=== PATIENT | male | born 1945 | race Caucasian/White ===

== ENCOUNTER 2022-10-01 14:28 | Outpatient (CLI) | payer MEDICARE, BC, SELFPAY ==
[2022-10-01 14:12] LABS: Albumin* 4.6 g/dL (3.3-5.0); Chloride* 104 mmol/L (96-114)
[2022-10-01 14:13] LABS: Sodium* 138 mmol/L (135-149)
[2022-10-01 14:15] LABS: Alanine Aminotransferase* 28 U/L (4-50); Alkaline Phosphatase* 73 U/L (40-150); Aspartate Amino Transferase* 32 U/L (12-35); Bilirubin Total* 0.6 mg/dL (0.1-1.5); Blood Urea Nitrogen* 18 mg/dL (7-30); Calcium* 9.5 mg/dL (8.4-10.6); Carbon Dioxide* 28 mmol/L (20-32); Cholesterol* 211 mg/dL (90-199); Creatinine* 0.9 mg/dL (0.5-1.5); Estimated Glomerular Filt Rate 89 ml/min; Glucose* 99 mg/dL (60-115); Total Protein* 7.2 g/dL (6.0-8.3); Triglycerides* 122 mg/dL (40-149)
[2022-10-01 14:16] LABS: HDL Cholesterol* 60 mg/dL (>=40); LDL Cholesterol Calculated 127 mg/dL (<100)
[2022-10-01 14:37] LABS: PSA Screen* 0.67 ng/mL (0.10-4.00)
== END 2022-10-01 14:29 | disposition home or self-care (01) ==
PROVIDERS: PCP Family Medicine; Visit Provider Family Medicine
DX: Z00.00 Encounter for general adult medical examination without abnormal findings (principal); E78.00 Pure hypercholesterolemia, unspecified; N40.0 Benign prostatic hyperplasia without lower urinary tract symptoms
CPT/HCPCS: 80053; 80061; 84153

== ENCOUNTER 2022-12-03 15:15 | Outpatient (RCR) | payer MEDICARE, BC, SELFPAY ==
--- NOTE | 2022-10-29 14:35 | PT.OPE ---
PT [facility] Outpatient Eval PT [facility] Outpatient Eval Start: 10/28/22 16:06 Freq: Status: Active Protocol: Document 10/29/22 08:02 LSL (Rec: 10/29/22 08:28 LSL [id number]) E-signed By Sissy Salvador PT Physical Therapy Outpatient Evaluation Insurance Information Recert Due Date 12/19/22 Insurance Name Medicare B Insurance Information/Comments BCBS supplement Medical Diagnosis R medial epicondylitis, R shoulder pain Treating Diagnosis pain, weakness, impaired ROM Referring MD Osborn Subjective Subjective Pt. complains of shoulder and elbow pain for last 5 years and just isn't getting any better. Pt. was playing [employer] ball last summer and noticed some elbow pain and the left elbow began intermittently having pain a couple weeks ago. Pt. is R hand dominant. Pt. had PT about 5 years ago and it helped nominally. I use a computer mouse a lot and play [employer]is [employer], so my arm is up for 30-45' at a time. I play daily. Pt reports the pain is shoulder is intermittent with activity with a little bit of burning and more aching. Denies radicular pain. Changing position helps. I work with a personal fitness trainer at [employer] and he has given me some exercises to include wrist flexion and extension stretches and 90 degree ER and haven't noticed any improvement. I wake with the pain and then go 4 hours later and there is nothing there. When I do exercises it feels weaker. Haven't been to PT in 3 years. Date of Last Physician Visit 10/20/22 Current Work Status Retired Preferred Name Jordan Objective Range of Motion AROM - Cervical - LLF 40% with tightness B, all others WFL Shoulder L R flexion 135 118 abduction 148 118 IR T9 L4 ER 86 96 PROM Flexion about 160 tightness superiorly, abduction 140 tightness posteriorly Cervical - B equal lateral flexion Wrist - flexion WNL, extension WFL Strength Shoulder - L hor abd 4/5, supraspinatus 4-/5, R hor abd 5-/5, supraspinatus 3+/5, ER 3 +/5 JOCKEY VALET - L 70/65/64 pounds of pressure R 85/76/76 pounds of pressure Palpation tender rhomboid, R wrist extensor muscle bundle both tender Posture B protracted shoulders, atrophy R RC visible Assessment Assessment/Impression Pt. is a 76 y/o male with complaints of R shoulder and elbow pain. There was visible atrophy in the supraspinatus and infraspinatus leading to RC weakness and imbalance contributing to his pain. 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 He will benefit from PT to establish a good HEP and work on improving the strength in his RC and scapular stabilizers with manual therapy for joint and muscles. Primary Functional Limitations reaching, lifting Plan of Care Rehabilitation Potential Excellent Physical Therapy Goals SHORT TERM GOALS: (3 weeks) 1. Pt. to have improved shoulder flexion by 20 degrees . 2. Pt. to have 1/2 grade increase in muscle strength. INDUSTRIAL ECONOMIST GOALS: (4+ weeks) 1. Pt. 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 2. Pt. able to play trumpet with pain 2/10 or less. Coordination/Communication With Referral Source Treatment Plan/Direct Interventions Joint Mobilization,Manual Therapy,Self-Care/Home Management,Therapeutic Activities Frequency/Duration 1x/week 6 weeks Patient Will Be Discharged From Therapy Completion of LTG(s),Skills Plateau,Independent w/HEP, Independently Progressing Evaluation Billing Untimed Code Treatment Minutes 25 Complexity Low Certification Information Initial Certification Date 10/29/22 Ending Certification Date 12/26/22 Provider Signature Shows Agreement With POC & Medical Necessity Physician Signature & Date Requested Please Sign/Date Here Physician Comment/Change : Physician NPI Number #
== END 2023-01-13 15:36 | disposition home or self-care (01) ==
PROVIDERS: PCP Family Medicine; Visit Provider Family Medicine
DX: M25.511 Pain in right shoulder (principal); M77.01 Medial epicondylitis, right elbow; Z51.89 Encounter for other specified aftercare
CPT/HCPCS: 97032; 97110; 97140; 97161

== ENCOUNTER 2023-01-22 08:17 | Outpatient (CLI) | payer MEDICARE, BC, SELFPAY | END 2023-01-22 08:18 | disposition home or self-care (01) | LOC: NFLDREF 22:01 | PROVIDERS: PCP Family Medicine; Referring Provider Family Medicine; Visit Provider Family Medicine | DX: E78.00 Pure hypercholesterolemia, unspecified (principal) | CPT/HCPCS: 80061; 84460 ==

== ENCOUNTER 2024-02-02 12:26 | Outpatient (CLI) | payer MEDICARE, BC, SELFPAY | END 2024-02-02 12:27 | disposition home or self-care (01) | PROVIDERS: PCP Family Medicine; Visit Provider Family Medicine | DX: E78.00 Pure hypercholesterolemia, unspecified (principal); N40.0 Benign prostatic hyperplasia without lower urinary tract symptoms; Z13.228 Encounter for screening for other metabolic disorders; Z12.5 Encounter for screening for malignant neoplasm of prostate | CPT/HCPCS: 80053; 80061; G0103 ==

== ENCOUNTER 2024-03-31 11:15 | Outpatient (RCR) | payer MEDICARE, BC, SELFPAY ==
--- NOTE | 2024-02-05 08:57 | PT.OPE ---
PT [facility] Outpatient Eval PT [facility] Out[facility] Eval Start: 02/05/24 07:21 Freq: Status: Active Protocol: Document 02/05/24 08:55 ROSEANNT (Rec: 02/05/24 08:57 CJT [id number]) E-signed By Praful Alonso PT Physical Therapy Outpatient Evaluation Insurance Information Recert Due Date 05/05/24 Insurance Name Medicare B Medical Diagnosis M54.2 - Cervicalgia M25.511 - R shoulder pain Treating Diagnosis M54.2 - Cervicalgia M25.511 - R shoulder pain Referring MD Osborn Subjective Subjective Pt presents with complaints of R shoulder pain and neck pain . Pain is worse in the shoulder in the AM and improves with motion. Points to top of his shoulder as the source of his pain. Also notes pain in R scapular muscles - says they are tight. In regard to his neck, he points to his L UT and notes the muscles feel very tight. Enjoys playing pickleball. Doesn't seem to have pain while playing. Pt describes his exercise routine including stretching his chest on the floor, cervical retraction stretching, and shoulder exercises with 8lb dumbbells. Pt leaves for trip to [place] at the end of February. Pain Comments 02/11 for shoulder and L neck Date of Last Physician Visit 02/02/24 Current Work Status Retired Occupation Former House Rn Preferred Name Jordan Del Valle Therapy Limitations/Systems Review Not Limited Objective Other/Pertinent Objective Cervical ROM Extension - 44 Flexion - 44 R/L Side Bend - 20/20 R/L Rotation - 57/64 R Shoulder ROM Flexion/Abduction/IR/ER - 140/ 140/L2/67 L Shoulder ROM Flexion/Abduction/IR/ER - 140/ 130/T12/76 Cervical Strength Extension - 5/5 MMT Flexion - 4/5 MMT R/L Side Bend - 5/5 MMT R/L Rotation - 5/5 MMT R Shoulder Strength Flexion - 4/5 MMT Abduction - 4/5 MMT IR (neutral) - 5/5 MMT IR (90) - 5/5 MMT ER (neutral) - 4/5 MMT ER (90) - 4-/5 MMT Empty Can - 4-/5 MMT L Shoulder Strength Flexion - 4+/5 MMT Abduction - 4+/5 MMT IR (neutral) - 5/5 MMT IR (90) - /5 MMT ER (neutral) - 4+/5 MMT ER (90) - 4/5 MMT Empty Can - 4/5 MMT R Scapular Strength Rhomboid - 4+/5 MMT Mid Trap - 4+/5 MMT Lower Trap - 4+/5 MMT L Scapular Strength Rhomboid - 4+/5 MMT Mid Trap - 4+/5 MMT Lower Trap - 4+/5 MMT Palpation: pt reports tenderness/pain with palpation to L scalenes, B pec major Posture: slight forward rounding of shoulders and forward head position Spurling's Compression: negative Distraction: feels good Mcgill's: negative Crossover: pain along posterolateral shoulder Celis-Ede: negative Whipple: negative for pain, positive for weakness Neers: negative Speeds: negative Assessment Assessment/Impression Jordan is a very pleasant 78 year old male who presents to our clinic for evaluation and treatment of R shoulder pain and neck pain. Pt presents with ROM and strength deficits in both cervical spine and R shoulder (see objective). Pts neck pain appears to be due to muscle tightness in his L scalenes. Pt shoulder pain appears to be due to osteoarthritis as he notes that pain is worse in the AM and resolves with motion. He does have significant weakness in his R>L RTC muscles and will benefit from strengthening. No signs of impingement this date. Scapular muscle strength actually looks quite good for pts age, but could use some strengthening as well. The nature of the pts condition was explained and all questions were answered to the pts satisfaction. Skilled PT services are medically necessary to address deficits and return patient to highest level of function. Recommend physical therapy sessions 1/ week for 4-8 weeks. Pt agrees with this plan. Printout of HEP was given for I completion and pt gives verbal understanding of each exercise . Primary Functional Limitations Rolling in bed, lifting, reaching Plan of Care Rehabilitation Potential Good Physical Therapy Goals STG - To be completed in 2-3 weeks: 1. Pt will demonstrate improved shoulder flexion and abduction by 10+ degrees so that they may reach for cans of soup on top shelf in pantry . 2. Pt will report reduction in shoulder pain by factor of 2 so that they may sleep without waking due to pain while shifting position in the night . 3. Pt will demonstrate improved cervical strength to 5/5 MMT in all directions to provide greater support to cervical spine and head. 4. Pt will report reduction in neck pain by factor of 2 so that they may roll over in bed without waking due to pain. LTG - To be completed in 4-8 weeks: 1. Pt to be I with HEP so that they may I manage progression of symptoms. 2. Pt will report ability to lay on R shoulder in bed without increase in pain so that they may sleep in preferred position to achieve better night's sleep. 3. Pt will demo at least 4+/5 MMT for all shoulder motions B to provide greater stability to GH joints to reduce pain. Treatment Plan/Direct Interventions Heat,Joint Mobilization,Manual Therapy,Self-Care/Home Management,Therapeutic Exercises Frequency/Duration 1/week for 4-8 weeks Patient Will Be Discharged From Therapy Completion of LTG(s),Skills Plateau,Independent w/HEP, Independently Progressing Evaluation Billing Untimed Code Treatment Minutes 45 PT Eval No Charge No Complexity Low Certification Information Initial Certification Date 02/05/24 Ending Certification Date 05/05/24 Provider Signature Shows Agreement With POC & Medical Necessity Physician Signature & Date Requested Please Sign/Date Here Physician Comment/Change : Physician NPI Number #
== END 2024-06-27 08:53 | disposition home or self-care (01) ==
PROVIDERS: PCP Family Medicine; Visit Provider Family Medicine
DX: M25.511 Pain in right shoulder (principal); M54.2 Cervicalgia; Z51.89 Encounter for other specified aftercare
CPT/HCPCS: 76706; 93306; 97110; 97140; 97161

== ENCOUNTER 2024-04-21 08:51 | Outpatient (CLI) | payer MEDICARE, BC, SELFPAY ==
--- NOTE | 2024-04-21 09:15 | MR_ITS ---
[facility] [address] [facility] [address] Phone:?[phone] Fax:?[phone] Referring Physician Information: Alexi Jacobo M.D. [id number] [address] Phone:?[phone] Fax:?[phone] Patient:Cesia Qureshi D.O.B:?1945 Sex:?Male Phone:?[phone] [facility] MRN:?[id number] Exam Date:?04/21/2024 EXAM: MRI of the LEFT ELBOW, without contrast CLINICAL INFORMATION: Male, 78 years old, with left elbow pain. INDICATION: Evaluate for biceps tendon tear. PRIOR SURGERY: None reported. PLAIN FILMS: None available. COMPARISONS: No prior MRIs available. TECHNICAL INFORMATION: Using a 1.5T MR scanner and a localizing surface coil: coronals: PD, T1, T2, STIR sagittals: PD, T2 axials: PD, T2 SEDATION: None CONTRAST: None FINDINGS: Elbow joint: Effusion: Physiologic. Ganglion cyst: None. Radiohumeral plica: No pathologic thickening or enlargement. Osteochondral surfaces: No osteochondral abnormality. Loose bodies: No demonstrable loose bodies. Bursae: Marked bicipitoradial bursitis. No olecranon bursitis. Bones: Humerus: No fracture, osteochondritis dissecans or marrow edema/pathology. Radius: No fracture or marrow edema. Ulna: No fracture or marrow edema. Myotendinous structures: Biceps: Marked tendinopathy and high-grade tearing of the distal biceps tendon with only a a few poor quality tendon fibers remaining partially intact (axial PD series 9 images 110). The torn tendon fibers are retracted approximately 2.5 cm. Triceps: Intact posterior tendinous and anterior muscular insertions and lateral aponeurotic component, without tendinopathy, strain or tear. Brachialis: No strain/tear. Supinator: No strain/tear. Forearm extensors: Mild common extensor tendinopathy, without tear. Forearm flexors: Mild-moderate common flexor tendinopathy with focal interstitial delamination at the tendon origin. Ligaments: Medial ulnar collateral: No sprain or disruption. Radial collateral proper: Normal. Lateral ulnar collateral: Normal. Annular: Normal. Nerves: Ulnar: Normal, without appreciable edema, thickening or mass. No anconeus epitrochlearis accessory muscle over the cubital tunnel. Median: Normal. Radial: Normal. IMPRESSION: 1. Marked biceps insertional tendinopathy with high-grade tearing and approximately 2.5 cm of retraction. A few poor quality tendon fibers appear to remain partially intact. 2. Marked bicipitoradial bursitis. 3. Mild-moderate common flexor and mild common extensor tendinopathy, without tear. 4. No ligamentous sprain/tear. 5. No fracture or osseous stress reaction. 6. No chondromalacia or osteochondral lesion/defect. BC Electronically signed on 04/21/2024 1:10:00 PM by Tate Forte M.D.
--- NOTE | 2024-04-21 10:00 | MR_ITS ---
[address] [address] Phone:?[phone] Fax:?[phone] Referring Physician Information: Alexi Jacobo M.D. [address] [address] Phone:?[phone] Fax:?[phone] Patient:Cesia Qureshi D.O.B:?1945 Sex:?Male Phone:?[phone] [facility] MRN:?[id number] Exam Date:?04/21/2024 EXAM: MRI of the RIGHT SHOULDER, without contrast CLINICAL INFORMATION: Male, 78 years old, with right shoulder pain. INDICATION: Evaluate for rotator cuff tear. PRIOR SURGERY: None reported. PLAIN FILMS: Radiographs dated 04/12/2024. COMPARISONS: No prior MRIs available. TECHNICAL INFORMATION: Using a 1.5T MR scanner and a localizing surface coil: coronal obliques: PD, T2, STIR sagittal obliques: T2, T2 axials: PD, T2 SEDATION: None CONTRAST: None FINDINGS: Bones: Proximal humerus: No fracture or marrow edema/pathology. No humeral Hill-Sachs or reverse Hill-Sachs lesion/impaction or contusion. Glenoid: No fracture or marrow edema/pathology. No osseous Bankart lesion. Rotator cuff and muscles/tendons: Supraspinatus: Full-thickness, essentially full-width tear of supraspinatus, tendon retraction to the mid humeral head. A slender portion of the posterior tendon fibers may remain partially intact. Grade 2 muscle atrophy. Infraspinatus: Mild-moderate infraspinatus tendinopathy with a 1.9 x 1.3 cm area of low-grade partial-thickness articular surface tearing (sagittal T2 series 8 image 5 and coronal T2 series 6 image 14). Teres minor: No tendinopathy, tear or atrophy. Subscapularis: Moderate-marked tendinopathy of the superior distal subscapularis with a 1.6 x 1.5 cm area of bsaabmmiwoch-siax-hsmdu partial-thickness tearing the lesser tuberosity attachment (sagittal T2 series 8 image 13 and axial PD series 3 image 20). No muscle atrophy. Deltoid: No strain or atrophy. Coracoacromial arch: Acromion morphology: The acromion has type II morphology with a broad-based mild subacromial enthesophyte/spur. No os acromiale. Acromiohumeral space: The acromiohumeral space is within normal limits. Coracohumeral space: The coracohumeral space is within normal limits. Acromioclavicular joint: Joint: Mild AC joint arthropathy, which encroaches upon the underlying supraspinatus. Ligaments: Coracoclavicular ligaments are intact. Bursae: Subacromial-subdeltoid: Mild-moderate subacromial subdeltoid bursitis. Subcoracoid: No convincing subcoracoid bursal thickening/bursitis. Biceps tendon: The long head of the biceps tendon is medially displaced at the lesser tuberosity. Additionally, there is moderate marked tendinopathy and ill- defined intermediate grade tearing of the intra-articular biceps long head tendon. Glenohumeral joint: Effusion/cyst: Small glenohumeral joint effusion. Articular cartilage: Humeral head: Mild thinning of the articular cartilage throughout the medial aspect of the humeral head with mild inferomedial marginal osteophytosis. Glenoid: Mild thinning the glenoid articular cartilage, with mild anterior posterior marginal osteophytosis. Loose bodies: No discrete intra-articular body within the joint. Labrum:?Intrasubstance degeneration and poorly defined fraying/tearing is present circumferentially throughout the labrum, with a slender posterior inferior paralabral cyst (sagittal T2 series 8 image 14). Inferior glenohumeral ligament/axillary pouch:?Intact. The axillary pouch is normal in thickness and signal. No evidence of adhesive capsulitis or capsular injury. IMPRESSION: 1. Full-thickness, essentially full-width tear of supraspinatus, with tendon retraction to the mid humeral head and grade 2 muscle atrophy. 2. Findings keeping with a biceps dashawn injury: -Moderate marked subscapularis tendinopathy with broad-based sxvgalwtidbj-qoph-iybiv tearing of the lesser tuberosity attachment. -Medial displacement of the biceps long head tendon at the lesser tuberosity. -Moderate marked tendinopathy and ill-defined intermediate grade tearing of the intra-articular biceps long head tendon. 3. Mild osteoarthritis of the glenohumeral joint with a small joint effusion. 4. Broad-based mild subacromial enthesophyte/spur with mild/moderate subacromial subdeltoid bursitis. Additionally, there is mild AC joint arthropathy, which encroaches upon the underlying supraspinatus. 5. Circumferential degeneration and poorly defined fraying/tearing of the labrum with a slender posteroinferior paralabral cyst. 6. Mild-moderate pes planus tendinopathy with a 1.9 x 1.3 cm area of low-grade partial-thickness articular surface tearing. BC Electronically signed on 04/21/2024 1:05:00 PM by Tate Forte M.D.
== END 2024-04-21 08:52 | disposition home or self-care (01) ==
LOC: MRI 08:53
PROVIDERS: PCP Family Medicine; Visit Provider Orthopaedic Surgery
DX: M25.511 Pain in right shoulder (principal); S46.211A Strain of muscle, fascia and tendon of other parts of biceps, right arm, initial encounter; M71.521 Other bursitis, not elsewhere classified, right elbow; M75.101 Unspecified rotator cuff tear or rupture of right shoulder, not specified as traumatic
CPT/HCPCS: 73221

== ENCOUNTER 2024-05-20 07:30 | Day surgery (SDC) | payer MEDICARE, BC, SELFPAY ==
[2024-05-20] VITALS (7 sets, daily range): BP systolic 121–148; BP diastolic 75–98; PULSE 52–66; RESP 16; TEMP 36.2–36.4; O2SAT 95–99; BMI 26.0
[2024-05-20] MEDS: SODIUM CHLORIDE 0.9 % (FLUSH) 10 ML SYRINGE IVF (07:56)
[2024-05-20] MEDS: LACTATED RINGERS 1000 ML 1,000 ML 100 ML IV (07:57)
--- NOTE | 2024-05-20 08:14 | W.PM.H&PU ---
History & Physical Update History & Physical Update H&P Reviewed and patient assessed: No changes noted
--- NOTE | 2024-05-20 08:15 | PM.ORPRC ---
Procedure Note Date of procedure: 05/20/24 Procedure: PREOPERATIVE DIAGNOSIS: 1. Left distal biceps tendinosis and high-grade partial-thickness tear POSTOPERATIVE DIAGNOSIS: 1. Left distal biceps tendinosis and high-grade partial-thickness tear PROCEDURE: 1. Left distal biceps repair SURGEON: Merritt Jacobo MD. LABOR EMPLOYMENT ASSOCIATE: Aliyah Stapleton - An assistant professor of business was critical for this case to aid in patient positioning, tissue retraction, limb manipulation/positioning, and closure. ANESTHESIA: General with regional block IMPLANTS: Arthrex biceps button implant and a 7 mm x 10 mm peek tenodesis screw TOURNIQUET: Not utilized ESTIMATED BLOOD LOSS: 20 mL COMPLICATIONS: None evident INDICATIONS: The patient is a pleasant 78-year-old male with 1 year history left forearm pain. MRI was performed which revealed distal biceps tendinosis and high-grade partial-thickness tearing at the insertion. Recommendation was subsequently made for surgical repair to decrease pain and restore function of the biceps. Prior to surgery, the risks and benefits of procedure were discussed with patient, all questions were answered, and informed consent was obtained. DESCRIPTION OF PROCEDURE: Following a thorough discussion of risks, benefits, and alternatives consent was obtained and the operative site was marked. The patient was brought to the operating room and placed supine on the operating table. Induction of anesthesia was undertaken. IV Ancef was administered within 1 hr of incision preoperatively for prophylaxis. A tourniquet was placed on the patient's operative arm but was not utilized during the course of procedure. Left upper extremity was then prepped and draped in usual sterile fashion. A surgical time-out was performed confirming patient identity, surgical site, and surgical procedure. A longitudinal incision measuring 3-4 cm was made on the proximal volar forearm distal to the elbow flexion crease along the ulnar border of the brachioradialis. Blunt dissection was used to dissect through the subcutaneous tissues. Electrocautery was used to achieve hemostasis. Deep dissection was then used to expose the radial tuberosity and biceps tendon insertion site. The distal biceps tendon was identified at the insertion site and at the elbow flexion crease. The distal biceps tendon was noted to have significant tendinosis and had near complete tear from the insertion with only a few fibers remaining intact. The remaining fibers of the distal biceps were then released from the insertion site. The radial tuberosity was cleared of soft tissue. The distal biceps was then debrided back to healthy appearing tendon tissue. A #2 FiberLoop suture was then used to whipstitch the distal end of the biceps tendon. After whipstitch was complete, the tendon was able to pass through the 7 mm sizing block. Radial tuberosity was again exposed. A 3.2 mm bicortical tunnel was drilled in the radial tuberosity. Prior to drilling, fluoroscopic imaging was used to confirm drill placement in the radial tuberosity. An 8 mm unicortical tunnel was then drilled over the 3.2 mm guide pin. Guide pin and Reamer were removed. Wound was irrigated with normal saline and bone debris was removed. Biceps tendon was then passed deep to the superficial vascular structures. Sutures were then passed through the biceps button implant. The button fountain pen nibs inspector was used to pass the implant through both cortices of the radial tuberosity and button was flipped and seated on the cortical bone. Fluoroscopic imaging was used to confirm button deployment. Suture ends were then tensioned docking the tendon into the unicortical tunnel. Once the tendon was fully seated, 1 limb of suture was passed through the tendon, and a knot was tied. A 7 mm by 10 mm peek tenodesis screw was loaded over 1 suture limb, and the screw was inserted on the radial side of the bone tunnel. Once the tenodesis screw was fully seated, sutures were tied over the top of the screw, and remnant suture was cut and removed. Final fluoroscopic images were obtained confirming anatomic location of the biceps button. Wound was again irrigated with normal saline. Wound was then closed with 2-0 Vicryl and 2-0 Stratafix suture followed by Dermabond. Sterile dressings were applied followed by a well-padded long-arm posterior splint. Patient was awoken from anesthesia and transferred to the PACU in stable condition. POSTOPERATIVE PLAN: 1. No lifting, pushing, or pulling with the left upper extremity 2. Keep splint clean and dry, wear sling when ambulating as needed for comfort 3. Ice and elevation for pain and swelling 4. Tylenol and oxycodone as needed for pain control. 5. Follow-up in Orthopedic Clinic in 10-14 days for wound check and splint removal. 6. Will initiate formal physical therapy per the distal biceps tendon repair rehabilitation protocol in 2 weeks.
[2024-05-20] MEDS: MIDAZOLAM HCL 1 MG/ML inj IVP (10:45)
[2024-05-20] MEDS: fentaNYL 100 MCG/2 ML inj IVP (10:45)
--- NOTE | 2024-05-20 10:51 | SUR.PREOP ---
TIME?OUT:?1044 PT/RN/MDA?VERIFICATION?OF?SURGICAL?SITE Left Arm,?PROCEDURE Nerve Block,?AND?CONSENT OBTAINED?PRIOR?TO?INVASIVE?PROCEDURE.
[2024-05-20] MEDS: CEFAZOLIN 2 GM INJ IVP (11:25)
--- NOTE | 2024-05-20 11:38 | W.ANESCHARGE ---
Anesthesia Charges Start Date/Time Anesthesia Start Date: 05/20/24 Anesthesia Start Time: 11:18 Stop Date/Time Anesthesia Stop Date: 05/20/24 Anesthesia Stop Time: 13:53 Summary Extremes of Age - Over 70 or under 1: SOCIAL SERVICES ASSISTANT
--- NOTE | 2024-05-20 11:47 | CRLHL7_ITS ---
For Patients: As a result of the Century Cures Act, medical imaging exams and procedure reports are released immediately into your electronic medical record. You may view this report before your referring provider. If you have questions, please contact your health care provider. Indication: INTRA OP DISTAL BICEPS REPAIR EXAM WITH JUNG Technique: Two fluoroscopic images of the left elbow. Fluoroscopic time 6.7 seconds. IMPRESSION: Fluoroscopic guidance for distal biceps repair. Dictated by Mark Sotelo MD @ 05/20/2024 3:15:18 PM (Electronically Signed)
--- NOTE | 2024-05-20 13:26 | W.ANESCHARGE ---
Anesthesia Charges Start Date/Time Anesthesia Start Date: 05/20/24 Anesthesia Start Time: 11:18 Stop Date/Time Anesthesia Stop Date: 05/20/24 Anesthesia Stop Time: 13:53 Summary Extremes of Age - Over 70 or under 1: MDA
--- NOTE | 2024-05-20 13:27 | P.NB_ITS ---
Nerve Block Nerve Block Time Seen by Provider: 10:50 Date Seen: 05/20/24 Type of block requested by surgeon for post-operative analgesia: axillary Side: left Time out performed: Yes Verification of patient name: Yes Verification of date of : Yes Site marking: site marked Name of person performing procedure: Jean-Pierre Continuous monitoring Was continuous monitoring of O2 sat, B/P, threader operator, recorded every 15 minutes?: Yes Procedure Checklist: sterile prep, needles and gloves Ultrasound guided. Images saved: Yes Medications given in 5ml increments after negative aspiration: Ropivicaine %: 0.5 mL: 30 Needle gauge: 22 Patient tolerated procedure well: Yes Additional comments: Needle noted adjacent to nerve Block Charges Block Charge (with Pro Fee): Brachial Plexus Use of Ultrasound Machine for Block: Yes- US Guidance/pain block
== END 2024-05-20 14:45 | disposition home or self-care (01) ==
LOC: OR 07:31
PROVIDERS: PCP Family Medicine; Visit Provider Orthopaedic Surgery
PROC: (CPT 24341; principal; 2024-05-20 10:45)
DX: S46.212A Strain of muscle, fascia and tendon of other parts of biceps, left arm, initial encounter (principal); M75.22 Bicipital tendinitis, left shoulder; G89.18 Other acute postprocedural pain
CPT/HCPCS: 24342; 01716; 64415; 73070; 76000; 76942; 99100; A4580; C1713; J0690; J2250; J2704; J3010; J7120

== ENCOUNTER 2024-08-17 13:45 | Outpatient (RCR) | payer MEDICARE, BC, SELFPAY | END 2024-11-16 15:44 | disposition home or self-care (01) | PROVIDERS: PCP Family Medicine; Visit Provider Orthopaedic Surgery | DX: Z98.890 Other specified postprocedural states (principal); M25.622 Stiffness of left elbow, not elsewhere classified; Z51.89 Encounter for other specified aftercare | CPT/HCPCS: 97110; 97140; 97161 ==

== ENCOUNTER 2024-08-18 14:01 | Outpatient (CLI) | payer MEDICARE, BC, SELFPAY | END 2024-08-18 14:02 | disposition home or self-care (01) | LOC: LKVREF 14:01 | PROVIDERS: PCP Family Medicine; Visit Provider Family Medicine | DX: Z13.228 Encounter for screening for other metabolic disorders (principal) | CPT/HCPCS: 80048 ==

== ENCOUNTER 2024-10-28 06:14 | Day surgery (SDC) | payer MEDICARE, BC, SELFPAY ==
[2024-10-28] VITALS (14 sets, daily range): BP systolic 109–155; BP diastolic 57–82; PULSE 59–73; RESP 14–18; TEMP 36.2–36.4; O2SAT 91–97; BMI 25.9
[2024-10-28] MEDS: LACTATED RINGERS 500 ML 500 ML 100 ML IV ×3 (06:30→10:51)
[2024-10-28] MEDS: SODIUM CHLORIDE 0.9 % (FLUSH) 10 ML SYRINGE IVF (06:55)
--- NOTE | 2024-10-28 07:19 | P.ORPRC_ITS ---
Procedure Note Date of procedure: 10/28/24 Procedure: PREOPERATIVE DIAGNOSES: 1. Right shoulder rotator cuff tear. 2. Right shoulder subacromial impingement syndrome. POSTOPERATIVE DIAGNOSES: 1. Right shoulder rotator cuff tear - supraspinatus, anterior infraspinatus, and superior subscapularis 2. Right shoulder subacromial impingement syndrome. NAME OF OPERATION: 1. Right shoulder arthroscopic rotator cuff repair (upper subscapularis, supraspinatus, anterior infraspinatus). 2. Right shoulder arthroscopic biceps tenodesis 3. Right shoulder arthroscopic limited debridement 4. Right shoulder arthroscopic bursectomy, subacromial decompression/partial acromioplasty. SURGEON: Merritt Jacobo MD EXCHANGE ADMINISTRATOR: Dorothy Gerardo P.A.-C. An legal executive assistant was critical for this case to aide in patient positioning, suture manipulation, arm positioning, instrument positioning, and closure. ANESTHESIA: General plus preoperative supraclavicular block. IMPLANTS: Arthrex 4.75 mm knotless BioComposite Loop 'N' Tack tenodesis implant system; Arthrex knotless FiberTak SpeedBridge implant system (3 medial knotless fiber tacks and 2 lateral 5.5 mm SwiveLock anchors) COMPLICATIONS: None evident ESTIMATED BLOOD LOSS: 10 mL INDICATIONS: The patient is a pleasant, 78-year-old male who has experienced right shoulder pain and weakness that has been increasing in recent time. Physical exam and imaging were consistent with a rotator cuff tear. Given these findings and failure to improve with nonoperative management, recommendation was made for surgical intervention consisting of right shoulder arthroscopic rotator cuff repair, subacromial decompression, and probable biceps tenodesis. Prior to surgery risks and benefits were discussed with patient all questions were answered and informed consent was obtained. FINDINGS: Exam under anesthesia revealed stable shoulder with full range of motion. 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 Grade 1 chondromalacia of the humeral head. Near full-thickness tear of the superior subscapularis with medial subluxation of the long head of the biceps tendon. Full-thickness tear of the supraspinatus and anterior infraspinatus that measured approximately 3 cm anterior posterior direction and was retracted medially 2-3 cm. No loose bodies were identified within the pouch or subscapularis recess. PROCEDURE: Following a thorough discussion of risks, benefits, and alternatives, consent was obtained and the operative shoulder was marked. A supraclavicular nerve block was performed by anesthesia staff in preop holding. The patient was brought to the operating room and placed supine on the operating table. General anesthesia was administered, and patient was given IV Ancef preoperatively for prophylaxis. A surgical time-out was performed confirming patient identity, surgical site, and procedure. Patient was placed into the beach chair position. Head was placed in padded hogshead stock clerk in neutral alignment, and all bony prominences were well padded. The operative shoulder and upper extremity were prepped and draped in the appropriate sterile fashion using ChloraPrep. The anterior, posterior, lateral portal sites were injected with 0.25% bupivacaine with epinephrine. The glenohumeral joint was injected with 40 mL of normal saline using and 18g spinal needle from a posterior approach. Posterior portal was established. Anterior portal was established after localization with a spinal needle and a 7.0 mm cannula was placed here. Diagnostic arthroscopy was then performed with finding s as noted above. Attention was 1st directed to biceps tenodesis. This whipstitch suture Passer was used to pass the FiberLink around the long head of the biceps tendon creating a cinch stitch, and then the end of the suture was through the tendon proximal to the cinch stitch. Biceps tenotomy was then performed using arthroscopic scissor. The footprint of the upper subscapularis was debrided of soft tissue lightly decorticated with the bone-cutting shaver. The 4.75 mm BioComposite SwiveLock anchor incorporating the FiberLink suture was then placed in the humeral head just proximal to the bicipital groove. This was secured to position completing the biceps tenodesis. The proximal end of the biceps was debrided with a shaver and radiofrequency ablation. The knotless mechanism from the SwiveLock anchor was then used to pass a stitch through the upper subscapularis. After passing this stitch, it was tension completing the repair of the upper subscapularis. After repair, the upper subscapularis was noted be securely fixed to its footprint. Remnant sutures were cut and removed. The Cam was then moved to the subacromial space. A lateral portal was established after localization of spinal needle. A subacromial bursectomy was performed using combination of the arthroscopic shaver and radiofrequency ablator. Partial acromioplasty was performed using the bone-cutting shaver. A passport cannula was then placed into the lateral portal. The cuff was grasped and was noted to be easily mobilized well back to its footprint. The footprint was debrided of soft tissue and lightly decorticated the bone cutting shaver. Next three knotless FiberTak anchors were placed in the medial aspect of the footprint for the supraspinatus and anterior infraspinatus. These were placed through three small stab incisions off the lateral aspect of the acromion. After all 3 anchors were placed, FiberLink suture was then used to shuttle each set of sutures independently through the rotator cuff. Medial row repair was then performed using the knotless anchors. Lateral row repair was then performed using 25.5 mm knotless FiberTak anchors which were placed lateral to the anterior and posterior aspects of the supraspinatus footprint. Each anchor incorporated 1 FiberTape from the previously placed medial row anchors. Prior to placing each anchor, all sets of sutures were tensioned. [place] was then secured position remnant sutures were cut and removed. The knotless sutures from the anterior anchor were used to incorporate a dog ear which was present after the repair. After this was performed, remnant sutures were cut and removed. The medial row repair was tension 1 final time and these remnant sutures were also cut and removed. The shoulder was placed through range of motion and found to be stable. The rotator cuff was re-probed and found to be stable and securely reapproximated back to its footprint on the humeral head. Arthroscopic instruments and cannulas were removed. Excess fluid was drained and portal sites were closed with 3-0 nylon simple interrupted sutures. Sterile dressing was applied followed by the application of an abduction sling. The patient was awoken from anesthesia and transferred to the PACU in stable condition. PLAN: 1. Discharged to home day of surgery. 2. Ice for pain and swelling. 3. Tylenol and oxycodone as needed for pain control. 4. Abduction sling at all times except for ROM and showering. -Remove sling several times daily for pendulum exercises finger, wrist, and elbow range of motion. 5. Follow-up in orthopedic clinic in 10-14 days for wound check and suture removal. 6. Will initiate formal physical therapy 2 weeks postoperatively per the standard rotator cuff repair protocol.
--- NOTE | 2024-10-28 07:19 | W.PM.H&PU ---
History & Physical Update History & Physical Update H&P Reviewed and patient assessed: No changes noted
--- NOTE | 2024-10-28 07:25 | SUR.PREOP ---
TIME?OUT:?0727 PT/Erlinda Frank RN/Dr. Jean-Pierre MDA?VERIFICATION?OF?SURGICAL?SITE right shoulder,?PROCEDURE,?AND?CONSENT OBTAINED?PRIOR?TO?INVASIVE?PROCEDURE.
[2024-10-28] MEDS: fentaNYL 100 MCG/2 ML inj IVP (07:28)
[2024-10-28] MEDS: MIDAZOLAM HCL 1 MG/ML inj IVP (07:28)
--- NOTE | 2024-10-28 07:59 | P.ANES_ITS ---
Anesthesia Charges Start Date/Time Anesthesia Start Date: 10/28/24 Anesthesia Start Time: 07:34 Stop Date/Time Anesthesia Stop Date: 10/28/24 Anesthesia Stop Time: 10:34 Summary Extremes of Age - Over 70 or under 1: MDA Coding CPT Codes CPT Codes: ANESTH SURGERY OF SHOULDER - 02251 ([id number]) P2 - PATIENT W/MILD SYST DISEASE, QK - STAGE PRODUCER 2-4 CNCRNT ANES PROC, QX - CARDIAC CATHETERIZATION TECHNICIAN SVC W/ MD MED DIRECTION Additional Codes: Summary - Extremes of Age - Over 70 or under 1: MDA ([id number])
--- NOTE | 2024-10-28 07:59 | W.PM.NB ---
Nerve Block Nerve Block Time Seen by Provider: 07:29 Date Seen: 10/28/24 Type of block requested by surgeon for post-operative analgesia: supraclavicular Side: right Time out performed: Yes Verification of patient name: Yes Verification of date of : Yes Site marking: site marked Name of person performing procedure: Jean-Pierre Continuous monitoring Was continuous monitoring of O2 sat, B/P, monitoring tech, recorded every 15 minutes?: Yes Procedure Checklist: sterile prep, needles and gloves Ultrasound guided. Images saved: Yes Medications given in 5ml increments after negative aspiration: Ropivicaine %: 0.5 mL: 20 Needle gauge: 22 Precedex (mcg): 25 Patient tolerated procedure well: Yes Block Charges Block Charge (with Pro Fee): Brachial Plexus Use of Ultrasound Machine for Block: Yes- US Guidance/pain block
--- NOTE | 2024-10-28 07:59 | W.ANESCHARGE ---
Anesthesia Charges Start Date/Time Anesthesia Start Date: 10/28/24 Anesthesia Start Time: 07:34 Stop Date/Time Anesthesia Stop Date: 10/28/24 Anesthesia Stop Time: 10:34 Summary Extremes of Age - Over 70 or under 1: MDA Coding CPT Codes CPT Codes: ANESTH SURGERY OF SHOULDER - 38707 ([id number]) P2 - PATIENT W/MILD SYST DISEASE, QK - CIGAR HEAD PERFORATOR 2-4 CNCRNT ANES PROC, QX - ENVELOPE CUTTER SVC W/ MD MED DIRECTION Additional Codes: Summary - Extremes of Age - Over 70 or under 1: MDA ([id number])
[2024-10-28] MEDS: LIDOCAINE 1%-EPI 1:100,000 20 ML INFILTRATI (08:07)
[2024-10-28] MEDS: EPINEPHrine 1 MG in SODIUM CHLORIDE IRRIG SOLUTION 3,000 ML 3001 MG IRRIGATION ×6 (08:07→09:50)
[2024-10-28] MEDS: CEFAZOLIN 2 GM INJ IVP (08:14)
[2024-10-28] MEDS: EPINEPHrine 1 MG in SODIUM CHLORIDE IRRIG SOLUTION 3,000 ML 9003 MG IRRIGATION (09:36)
--- NOTE | 2024-10-28 10:36 | P.ANES_ITS ---
Anesthesia Charges Start Date/Time Anesthesia Start Date: 10/28/24 Anesthesia Start Time: 07:34 Stop Date/Time Anesthesia Stop Date: 10/28/24 Anesthesia Stop Time: 10:34 Coding CPT Codes CPT Codes: ANESTH SURGERY OF SHOULDER - 56878 ([id number]) QK - MACHINE PACKAGE SEALER 2-4 CNCRNT ANES PROC, QX - EMERGENCY PLANNING AND RESPONSE MANAGER SVC W/ MED DIRECTION
--- NOTE | 2024-10-28 10:36 | W.ANESCHARGE ---
Anesthesia Charges Start Date/Time Anesthesia Start Date: 10/28/24 Anesthesia Start Time: 07:34 Stop Date/Time Anesthesia Stop Date: 10/28/24 Anesthesia Stop Time: 10:34 Coding CPT Codes CPT Codes: ANESTH SURGERY OF SHOULDER - 99286 ([id number]) QK - SAVINGS COUNSELOR 2-4 CNCRNT ANES PROC, QX - COUNT TEAM MEMBER SVC W/ MED DIRECTION
== END 2024-10-28 12:26 | disposition home or self-care (01) ==
LOC: OR 06:16
PROVIDERS: PCP Family Medicine; Visit Provider Orthopaedic Surgery
PROC: (CPT 29805; principal; 2024-10-28 07:30)
DX: M75.101 Unspecified rotator cuff tear or rupture of right shoulder, not specified as traumatic (principal); M75.41 Impingement syndrome of right shoulder; M94.211 Chondromalacia, right shoulder; G89.18 Other acute postprocedural pain
CPT/HCPCS: 29827; 29828; 29826; 29822; 01630; 64415; 76942; 99100; C1713; J0171; J0330; J0690; J1100; J2250; J2371; J2405; J2704; J2795; J3010; J3490; J7120; L3670

== ENCOUNTER 2025-01-27 06:06 | Day surgery (SDC) | payer MEDICARE, BC, SELFPAY ==
[2025-01-27] VITALS (9 sets, daily range): BP systolic 136–165; BP diastolic 75–88; PULSE 56–67; RESP 16–20; TEMP 36.8; O2SAT 95–98
--- NOTE | 2025-01-27 07:06 | SUR.PHASEI ---
Monitoring in the O.R. charted on Phase 1 vital sign from monitor worksheet.
--- NOTE | 2025-01-27 07:08 | W.PM.H&PU_ITS ---
History & Physical Update History & Physical Update H&P Reviewed and patient assessed: The following changes are noted below H&P Updates: Patient has history of left thumb trigger finger. Symptoms did not improve with corticosteroid injection. He has now elected to proceed with surgery consisting of open right thumb A1 Demetrio (Trigger) release. Risks of surgery to include but not limited to infection, neurovascular injury, persistent pain and triggering, and marques- incisional pain were discussed with patient and all questions were answered.
--- NOTE | 2025-01-27 07:09 | P.ORPRC_ITS ---
Procedure Note Date of procedure: 01/27/25 Procedure: PREOPERATIVE DIAGNOSIS: 1. Left thumb trigger digit POSTOPERATIVE DIAGNOSIS: 1. Left thumb trigger digit PROCEDURE: 1. Left thumb trigger (A1 dashawn) release SURGEON: Merritt Jacobo MD. CASE SUPERVISOR: Dorothy Gerardo P.A.-C. An assistant food service director was critical for this case to aid in patient positioning, tissue retraction, limb manipulation/positioning, and closure. ANESTHESIA: Local anesthetic IMPLANTS: None TOURNIQUET: 8 min at 250 mmHg COMPLICATIONS: None INDICATIONS: The patient is a pleasant 79-year-old male who has history of left thumb pain and triggering. Symptoms did not improve with conservative management. Patient subsequently elected to proceed with surgical intervention consisting of left thumb A1 dashawn release. Prior to surgery risks and benefits were discussed with patient all questions were answered informed consent was obtained. DESCRIPTION OF PROCEDURE: Patient was seen preoperatively and operative site was marked. The subcutaneous tissues overlying the left thumb A1 dashawn were injected with a combination of 1% lidocaine and 0.25% bupivacaine. Patient was then brought to the operating room placed in supine position on the OR table. A tourniquet was placed on the patient's left arm and left upper extremity was prepped and draped in usual sterile fashion. A surgical time-out was performed confirming patient name, procedure, and location. Operative extremity was then elevated and exsanguinated with an Esmarch, and tourniquet was inflated to 200 mmHg. A skin incision measuring approximately 1 cm was made longitudinally over the A1 dashawn of the left thumb. Blunt dissection was used to dissect through subcutaneous tissues. The underlying flexor tendons and A1 dashawn were identified and retractors were used to protect the neurovascular structures. The A1 dashawn was then released using a tenotomy scissor. After complete release of the A1 dashawn, the patient was asked to flex and extend their fingers, and no active triggering was noted. Tourniquet was then released and hemostasis was achieved with bipolar electrocautery. Total tourniquet time was 8 minutes. Wound was the irrigated with normal saline. Skin incision was closed with 3-0 nylon horizontal mattress sutures, and a sterile dressing was applied. Patient was then transferred to the recovery room in stable condition. POSTOPERATIVE PLAN: 1. Patient will be discharged to home day of surgery. 2. They were given instructions for wound care and finger range of motion exercises. 3. Return to the clinic for follow-up evaluation in 10-14 days for wound check and suture removal.
[2025-01-27] MEDS: LIDOCAINE 1 % PF 30 ML INJECTION (07:12)
[2025-01-27] MEDS: ETHYL CHLORIDE 1 APPLICATION 1 APPLIC TOPICAL (07:12)
[2025-01-27] MEDS: BUPIVACAINE 0.5% 30 ML INJECTION (07:12)
--- NOTE | 2025-01-27 07:51 | SUR.PHASEI ---
Patient tolerated procedure without discomfort
== END 2025-01-27 07:58 | disposition home or self-care (01) ==
LOC: OR 06:07
PROVIDERS: PCP Family Medicine; Visit Provider Orthopaedic Surgery
PROC: (CPT 26055; principal; 2025-01-27 07:15)
DX: M65.312 Trigger thumb, left thumb (principal)
CPT/HCPCS: 26055; J0665; J2003

== ENCOUNTER 2025-02-01 08:49 | Outpatient (CLI) | payer MEDICARE, BC, SELFPAY | END 2025-02-01 08:50 | disposition home or self-care (01) | LOC: NFLDREF 02-03 23:32 | PROVIDERS: PCP Family Medicine; Referring Provider Family Medicine; Visit Provider Family Medicine | DX: Z00.01 Encounter for general adult medical examination with abnormal findings (principal); N40.0 Benign prostatic hyperplasia without lower urinary tract symptoms; E78.00 Pure hypercholesterolemia, unspecified; Z12.5 Encounter for screening for malignant neoplasm of prostate | CPT/HCPCS: 80053; 80061; G0103 ==

== ENCOUNTER 2025-02-10 09:12 | Outpatient (CLI) | payer MEDICARE, BC, SELFPAY | END 2025-02-10 09:13 | disposition home or self-care (01) | LOC: RAD 09:13 | PROVIDERS: PCP Family Medicine; Visit Provider Family Medicine | DX: R01.1 Cardiac murmur, unspecified (principal); I35.0 Nonrheumatic aortic (valve) stenosis; I35.1 Nonrheumatic aortic (valve) insufficiency | CPT/HCPCS: 93306 ==

== ENCOUNTER 2025-03-13 11:15 | Outpatient (RCR) | payer MEDICARE, BC, SELFPAY ==
--- NOTE | 2024-11-16 15:36 | PT.OPE ---
[facility] PT [facility] Eval Start: 11/16/24 15:15 Freq: Status: Active Protocol: Document 11/16/24 15:16 THOMAS (Rec: 11/16/24 15:34 THOMAS [id number]) E-signed By Jevon Parrish, PT, ATC Physical Therapy Outpatient Evaluation Insurance Information Insurance Name Medicare B Medical Diagnosis Z98.890 other specified postprocedural states rotator cuff repair Treating Diagnosis R shld pain R shld ROM and strength deficits Compensated ADL's and functional performance Referring MD Jacobo Subjective Preferred Name Jordan Subjective Jordan feels his recovery is going very well following his R shld RCR on 10/28/24. Pain is minimal unless he inadvertently moves the shoulder actively. He is using the sling x 24 hr.s per day with exception of washing himself and performing pendulum exercises. Tylonol, Advil and Oxycodone are being used for symptom control at this time along with intermittent icing and heat application. The upper L shoulder-neck has muscle spasms which his PA felt could be attributed to the surgical positioning and procedure. A distal biceps repair was performed on the R elbow on May 20, 2024...this is doing very well he believes. He is sleeping in his bed and has since the surgery. Sleeping x 2 hr.s before interruption from discomfort. Pain Comments 2-02/11 Date of Last Physician Visit 11/10/24 Date of Surgery (If applicable) 10/28/24 Current Work Status Retired Precautions Treatment Precautions/Contraindications PROM only x 6 weeks Remain in sling for all daytime activities and sleep. Therapy Limitations/Systems Review Not Limited Objective Range of Motion PROM R shld: FLEX 95 ER 5 ABD 90 L shld: WNL's all patterns Swelling Mild generalized swelling in the R shoulder area Palpation Increase muscle tone-spasm in R pectoralis, upper trap and deltoid muscles. L upper trapezius and levator scapulae very tight. Sensation/Reflexes Normal throughout entire R shoulder and arm. Did say the shoulder feels wet at times. Assessment Assessment/Impression Jordan is a very pleasant 78 year old man referred to PT following his R shld RCR on . He is well known in PT from his rehabilitation following his biceps repair last summer. He appears to be making normal progress following his procedure with excellent day one PROM and absence of any guarding. The scapula is moving freely on his thoracic cage at this time . No bruising apparent nor drainage from scope sites. His left upper shoulder muscles are very tight, likely from the sling use. His has been available to assist him with the ADL's that he cannot do on his own. Skilled PT is recommended to address his residual pain, swelling, ROM and strength deficits. Primary Functional Limitations Most ADL's-dressing, washing, hair care, toileting. Unable to drive independently. Unable to play his trumpet. Plan of Care Rehabilitation Potential Good Physical Therapy Goals 6 week 1.PROM FLEX 160, ABD 110, ER 45, IR 65. 2.Pain of 0-1/10 with dressing and self care. 3.Maintain good scapular mobility to as to not interfere with osteokinematic GH joint mobility. Coordination/Communication With Referral Source Treatment Plan/Direct Interventions Joint Mobilization,Manual Therapy,Self-Care/Home Management,Therapeutic Activities,Therapeutic Exercises Frequency/Duration 1-2x per week 16-20 weeks Patient Will Be Discharged From Therapy Independent w/HEP, Independently Progressing Evaluation Billing Untimed Code Treatment Minutes 30 PT Eval No Charge No Complexity Low Certification Information Initial Certification Date 11/16/24 Ending Certification Date 02/13/25 Provider Signature Required Yes Provider Signature Shows Agreement With POC & Medical Necessity Physician NPI Number Write NPI# Here Physician Comment/Change : Physician Signature & Date Requested Please Sign/Date Here
--- NOTE | 2025-02-06 15:04 | PT.OPDN ---
[facility] Daily Note [facility] Outpatient Daily Note Start: 11/16/24 15:15 Freq: Status: Active Protocol: Document 02/06/25 14:56 RENETTATia (Rec: 02/06/25 15:03 THOMAS [id number]) E-signed By Jevon Parrish, PT, ATC PT OP Daily Progress Note Visit Information Note Type Recert/Progress Note Visit Number 20 Physician Authorized Visits eval and treat as per RCR protocol Insurance Information Insurance Name Medicare B Medical Diagnosis Z98.890 other specified postprocedural states rotator cuff repair Treating Diagnosis R shld pain R shld ROM and strength deficits Compensated ADL's and functional performance Referring MD Jacobo Subjective Preferred Name Jordan Subjective Feeling that additional therapy is needed because he has not reached all of the personal goals for recreation or ADL's that he would like in the 3 months since beginning his recovery from R shoulder RCR. Unable to hold reach into cupboards over shoulder height yet, change a light bulb that's over head or play pickle ball. No pain to report , just general tightness. Recognizing how quickly he fatigues with tasks as well so feels additional work with endurance in the R arm is necessary. Pain Comments Date of Last Physician Visit 11/10/24 Date of Next Physician Visit 12/06/24 Date of Surgery (If applicable) 10/28/24 Home Exercise Home Exercise Comments Access Code: [email or web address] URL: [email or web address] Date: 01/02/2025 Prepared by: Praful Alonso Exercises - Standing Single Arm Shoulder Flexion Stretch on Wall - 1 x daily - 7 x weekly - 45-60 seconds hold - Standing Shoulder Posterior Capsule Stretch - 1-3 x daily - 7 x weekly - 45-60 seconds hold - Standing Shoulder External Rotation Stretch in Doorway - 1-3 x daily - 7 x weekly - 45 -60 seconds hold - Shoulder ER Stretch in Abduction - 1-3 x daily - 7 x weekly - 45-60 seconds hold - Standing Shoulder Internal Rotation Stretch with Hands Behind Back - 1-3 x daily - 7 x weekly - 45-60 seconds hold - Sidelying Shoulder External Rotation - 1 x daily - 7 x weekly - 2-3 sets - 20 reps - Sidelying Shoulder Abduction Palm Forward - 1 x daily - 7 x weekly - 2-3 sets - 20 reps - Standing Shoulder Row with Anchored Resistance - 1 x daily - 7 x weekly - 2-3 sets - 20 reps - Shoulder extension with resistance - Neutral - 1 x daily - 7 x weekly - 2-3 sets - 20 reps Objective Other/Pertinent Objective PROM: Flex 170 ER 80 Abd 100 Patient Instructed in Risks/Benefits Yes Therapeutic Exercise Therapeutic Exercise Minutes (minutes) 40 Therapeutic Exercise: To Restore UBE x 10 min AROM, single and Functional Status double arm rotation Cable rows 5 plates 2x15 Cable R arm ext 2.5 plates 2x15 Cable R shld press diagonally downward 2.5 plates 2x15 Bodyblade endurance work x 5 min PNF diagonals against manual resistance, 3x10 rep.s patient supine. Weighted 3# wall slides 2x15 Bicep curls 8# 2x15 Tricep curls 5# 2x15 Remainder not performed today- Wall circles using towel and 1 # weight, CW and CCW x 15, two sets Wall lean and shld ER + ABD yellow tband 2x10 Blue tband rows 2x15 Green tband bilat shld ext 2x15 Red tband IR 2x15 Yellow tband ER 2x15 Standing R shoulder bicep curls 6# 2x15 Seated table incline press 3# 2x10 Supine table scapular press 7# 2x15 Supine table R shoulder flex 0 -110 degrees 3# 2x10 Supine table R shoulder circles 3# CW and CCW 2x10 Incline table R shoulder flexion 1-3# 2 sets to fatigue L sidelying R shld ER 2x10 1# Horz adduc 1.5 plates cable column 2x15 Shelf stacking 3# 2x10 Treatment Minutes Timed Code Treatment Minutes 40 Total Treatment Time 40 Billing Units Therapeutic Exercise Units 3 Assessment/Impression Assessment/Impression Surgery 10/28/24. 14 weeks s/p RCR. Appropriate to decrease PT to 1 visit per week moving forward. Goals 1, 2 and 4 accomplished. Working out on his own performing both AAROM and strength work as instructed and per protocol. Additional PT strongly recommended to further strength development in the R shoulder and advance endurance . Current active Flex and Scap are to 90 degrees before significant scapular assistance and trunk lateral lean needed to exceed shoulder level. R shoulder strength is 4/5 for ER, ABD, 4+/5 for Flex and IR Primary Functional Limitations Most ADL's-dressing, washing, hair care, toileting. Unable to drive independently. Unable to play his trumpet. Plan of Care Physical Therapy Goals 16 week 1.PROM FLEX 170, ABD 110, ER 75, IR 65. 2.Active R shld flexion to 120 degree without shoulder elevation/compensation allowing placement of dish or cup into cupboard. 3.Sufficient combined R shoulder motion permitting ease with washing opposite shoulder and head. 4.Able to pull covers up using R arm without discomfort. Daily Plan of Care Continue per POC Daily Plan of Care Comments An additional 4-6 weeks/visits would be appropriate to address lingering R shoulder AROM deficits, endurance challenges and initiate dynamic shoulder activity similar to pickle ball.
== END 2025-03-13 14:01 | disposition home or self-care (01) ==
PROVIDERS: PCP Family Medicine; Visit Provider Physician Assistant Surgical
DX: Z48.89 Encounter for other specified surgical aftercare (principal); M25.511 Pain in right shoulder; Z51.89 Encounter for other specified aftercare
CPT/HCPCS: 97110; 97140; 97161